=== PATIENT | female | born 1945 | race Caucasian/White ===

== ENCOUNTER → 2024-02-02 | Outpatient (CLI) | payer MEDICARE ==
--- NOTE | 2024-02-07 22:16 | MR ---
EXAMINATION TYPE: MR lumbar spine wo/w con DATE OF EXAM: 02/02/2024 COMPARISON: NONE HISTORY: 78-year-old female M47.16, Z98.1 Low back pain into alf lower extremities Technique: Multiplanar, multisequence images of the lumbar spine were obtained before and after admin istration of 6.5 mL intravenous Gadavist gadolinium contrast. FINDINGS: Previous T12 vertebroplasty change. Conus medullaris is normal. Status post L3-L4 posterior and interbody fusion. Above the fusion at L2-L3, there is moderate to severe degenerative disc disease with desiccated, leonila rowed, and large posterior bulging disc prominently indenting the ventral spinal canal and causing mi ld spinal canal stenosis. Moderate to severe bilateral neuroforaminal stenosis. Below the fusion at L4-L5, there is ligamentum flavum thickening and severe degenerative disc disease with bulging disc contributing to mild spinal canal stenosis. The adjacent metal artifact limits ass essment. Possible moderate to severe bilateral neuroforaminal stenosis. At L5-S1, there appears to be severe edematous Modic type I endplate changes especially towards the r ight with corresponding disc bulge eccentric towards the right and facet arthropathy. There is severe right greater than left neuroforaminal stenosis without significant spinal canal stenosis. At the fused L3-L4 level, no spinal canal stenosis. The right neural foramen is not well delineated. Unclear if this is due to an underlying significant foraminal stenosis or adjacent metal artifact. At L1-L2, mild posterior disc bulge impressing on the ventral thecal sac. No significant spinal canal stenosis. There is mild right neuroforaminal stenosis. Vertebral body heights are preserved and alignment is maintained. No suspicious bone marrow replaceme nt. Suspect a couple renal cortical cyst measuring up to 1.2 cm and a left-sided parapelvic cyst measurin g 2.1 cm. No abnormal enhancement within the spinal canal. IMPRESSION: 1. Status post L3-L4 posterior and interbody fusion. The right neuroforamen at this level is not well delineated. Unclear if this is due to adjacent metal artifact or a significant foraminal stenosis. 2. Severe degenerative disc disease L5-S1 with extensive edematous Modic type I endplate change espec ially towards the right. There is severe right greater than left neural foraminal stenosis here. 3. At L4-L5 below the fusion, there is severe degenerative disc disease and bulging disc with facet a rthropathy. Possible moderate to severe bilateral neuroforaminal stenoses. 4. At L2-L3 above the fusion, there is additional moderate to severe bilateral neuroforaminal stenosi s.
== END | disposition home or self-care (01) ==
LOC: RADMRIMAIN 10:51
PROVIDERS: ATTEND Family Medicine
DX: M47.16 Other spondylosis with myelopathy, lumbar region (principal); M99.73 Connective tissue and disc stenosis of intervertebral foramina of lumbar region; M51.06 Intervertebral disc disorders with myelopathy, lumbar region; Z98.1 Arthrodesis status
CPT/HCPCS: 72158; A9585